=== PATIENT | female | born 2000 | race Caucasian/White ===

== ENCOUNTER 2021-09-30 15:36 | Emergency (ER) | payer OTHER ==
[2021-09-30] MEDS ORDERED: IBUPROFEN800 MG PO (18:10)
== END 2021-09-30 18:25 | disposition home or self-care (01) ==
LOC: ER1 15:36
DX: S16.1XXA Strain of muscle, fascia and tendon at neck level, initial encounter (principal); V49.9XXA Car occupant (driver) (passenger) injured in unspecified traffic accident, initial encounter
CPT/HCPCS: 70450; 72125; 72131; 96374; 99283